=== PATIENT | female | born 2000 | race Caucasian/White ===

== ENCOUNTER 2023-04-23 18:58 | Emergency (ER) | payer MEDICAID ==
[~2023-04-23] VITALS: Ht 170.2 cm; Wt 59.0 kg
[2023-04-23 19:14] VITALS: BP 120/68; PULSE 94; RESP 15; TEMP 98.6; O2SAT 100
[2023-04-23 19:57] LABS: APPEARANCE,URINE CLEAR (CLEAR); BILIRUBIN,URINE NEGATIVE (NEGATIVE); BLOOD, URINE NEGATIVE (NEGATIVE); COLOR,URINE YELLOW (YELLOW); LEUKOCYTE ESTERASE ,URINE NEGATIVE (NEGATIVE); NITRITE, URINE NEGATIVE (NEGATIVE); PH,URINE 7.5 (5.0-9.0); PROTEIN,URINE NEGATIVE (NEGATIVE); UGLUCOSE NEGATIVE (NEGATIVE); UROBILINOGEN,URINE 0.2 EU/dL (0.2 - 1)
[2023-04-23] MEDS ORDERED: IBUP-1842 PO (20:41)
[2023-04-23] MEDS ORDERED: EMLAC TP (20:41)
[2023-04-23] MEDS ORDERED: CYCL-711 PO (20:41)
[2023-04-23] MEDS ORDERED: CYCLOBENZAPRINE 10 MG TAB PO ONE (20:50)
[2023-04-23] MEDS ORDERED: KETOROLAC 30 MG/ML VIAL IM ONE (20:50)
[2023-04-23 20:56] VITALS: BP 120/68; PULSE 94; RESP 15; TEMP 98.6; O2SAT 100
== END 2023-04-23 20:56 | disposition home or self-care (01) ==
LOC: MED 18:58
DX: M54.50 Low back pain, unspecified (principal); Z79.899 Other long term (current) drug therapy; Z79.1 Long term (current) use of non-steroidal anti-inflammatories (NSAID)
CPT/HCPCS: 72100; 72170; 81003; 81025; 96372; 99284; J1885